=== PATIENT | male | born 1955 | race African-American/Black ===

== ENCOUNTER 2020-10-18 16:58 | Emergency (ER) | payer OTHER ==
[~2020-10-18] VITALS: Ht 167.6 cm; Wt 100.0 kg
[2020-10-18 19:31] LABS: HEMATOCRIT 41.6 % (39.0-50.0); HEMOGLOBIN 13.4 g/dl (14.0-18.0); IMMATURE GRANULOCYTES 0.3 % (0.0-5.0); MEAN CELL VOLUME 82.1 fL CALC (80.0-100.0); MEAN CORPUSCULAR HGB 26.4 pG CALC (26.0-32.0); MEAN CORPUSCULAR HGB CONC 32.2 g/dL CAL (32.0-36.0); NEUT# 4.29 thou/uL (1.82-7.42); RED BLOOD COUNT 5.07 mill/uL (4.70-6.10)
[2020-10-18 19:37] VITALS: BP 148/80
[2020-10-18] MEDS ORDERED: HYDROCHLOROT25 MG PO (19:39)
[2020-10-18] MEDS ORDERED: AMLODIPINE BESY10 MG PO (19:39)
[2020-10-18 19:43] LABS: ALBUMIN 5.1 g/dL (3.2-5.0); ALKALINE PHOSPHATASE 79 u/l (38-126); ANION GAP 20 (6-22 (CALC)); BUN 16 mg/dL (8-23); BUN/CREATININE RATIO 17 (12-20 (CALC)); CARBON DIOXIDE 29 mmol/l (22-30); CHLORIDE 90 mmol/l (95-108); CREATININE 0.9 mg/dL (0.7-1.3); GFR > 60 ML/MIN (>=60 (CALC)); GFR FOR AFR.AMER. > 60 ML/MIN (>=60 (CALC)); MAGNESIUM 2.1 mg/dL (1.6-2.3); SGOT/AST 37 u/l (19-48); SODIUM 137 mmol/l (137-146); TOTAL PROTEIN 8.5 g/dL (6.3-8.2)
[2020-10-18 19:50] LABS: ACT PARTIAL THROMBO TIME 25.4 SECONDS (20.0-32.5); INTERNATIONAL NORMALIZED RATIO 1.1 RATIO (0.7-1.3)
== END 2020-10-18 19:31 | disposition short-term general hospital (02) | DRG 310 ==
LOC: ED 16:58
DX: I44.1 Atrioventricular block, second degree (principal); I45.2 Bifascicular block; I10 Essential (primary) hypertension; Z85.038 Personal history of other malignant neoplasm of large intestine